=== PATIENT | female | born 1965 | race Caucasian/White ===

== ENCOUNTER → 2020-05-24 13:09 | Outpatient (CLI) | payer OTHER, SELFPAY ==
--- NOTE | ~2020-05-24 | MM_ITS ---
EXAMINATION: MM screening [facility] BI w gia HISTORY: Screening TECHNIQUE: Craniocaudal and mediolateral oblique 3-D tomosynthesis images were obtained and synthetic 2-D images were generated. CAD analysis was submitted and interpreted. COMPARISON: Comparison to multiple prior studies sequentially, with oldest reviewed study dated 02/2013. BREAST PARENCHYMAL COMPOSITION: There are scattered areas of fibroglandular density. FINDINGS: There is no evidence of suspicious mass, calcification, or architectural distortion to sugg est malignancy in either breast. There has been no suspicious interval change. IMPRESSION: 1. No mammographic evidence of malignancy. 2. Recommend routine screening mammography in one year. BI-RADS Category 1: Negative Reviewed, dictated and finalized at location A.
== END ==
PROVIDERS: PCP Family Medicine; Visit Provider Obstetrics & Gynecology
DX: Z12.31 Encounter for screening mammogram for malignant neoplasm of breast (principal)
CPT/HCPCS: 77063; 77067

== ENCOUNTER 2022-11-22 02:17 | Emergency (ER) | payer OTHER, SELFPAY ==
--- NOTE | ~2022-11-22 | XR_ITS ---
EXAMINATION: XR chest 2V DATE: 11/22/2022 02:51 INDICATION: Irregular heartbeat, nausea TECHNIQUE: Frontal and lateral views of the chest are obtained COMPARISON: 12/16/2012 FINDINGS: The lungs are free of acute opacities. No pleural effusion or pneumothorax. The cardiomedia stinal silhouette is normal. There is moderate thoracic spondylosis. IMPRESSION: 1. No acute cardiopulmonary abnormality. Reviewed, dictated and finalized at location F.
--- NOTE | 2022-11-22 02:18 | ECG_ITS ---
Measurements Intervals Eckert Rate: 101 P: 23 VA: 129 QRS: -1 QRSD: 95 T: 22 QT: 359 QTc: 467 Interpretive Statements SINUS TACHYCARDIA MODERATE VOLTAGE CRITERIA FOR LVH, CONSIDER NORMAL VARIANT [MEETS CRITERIA IN ONE OF: R(aVL), S(V1), R(V5), R(V5/V6)+S(V1)] NONSPECIFIC ST & T-WAVE ABNORMALITY ABNORMAL ECG NO PREVIOUS ECG AVAILABLE FOR COMPARISON Electronically Signed On 11-22-2022 13:47:31 CDT by Natan Irby M.D.
[2022-11-22 02:22] VITALS: BP 156/119; PULSE 102; RESP 15; TEMP 36.4; O2SAT 100
[2022-11-22] MEDS: ONDANSETRON INJ 4 MG/2 ML VIAL IV PUSH (02:32)
[2022-11-22 02:35] LABS: Basophils Percent Auto 0.4 % (0.2-1.2); Eosinophils Absolute Auto 0.3 K/mm3 (0-0.3); Eosinophils Percent Auto 2.7 % (0-4.4); Hematocrit 46.8 % (37.0-47.0); Hemoglobin 15.7 g/dL (12.0-15.0); Immature Granulocyte Absolute 0.03 K/mm3 (0.00-0.031); Immature Granulocyte Percent A 0.3 % (0-0.5); Lymphocytes Absolute Auto 3.98 K/mm3 (0.9-3.2); Lymphocytes Percent Auto 39.8 % (18.3-44.2); Mean Corpuscular HGB Conc 33.5 g/dl (32-36); Mean Corpuscular Hemoglobin 29.5 pg (26-34); Mean Platelet Volume 10.8 fl (7.4-10.4); Monocytes Absolute Auto 0.7 K/mm3 (0.1-0.6); Monocytes Percent Auto 6.8 % (2.6-8.5); Platelet Count Result 252 k/mm3 (150-375); Red Blood Count 5.32 M/mm3 (4.2-5.4)
--- NOTE | 2022-11-22 02:35 | ED.GENADULT ---
HPI - General Adult General Chief complaint: Chest Pain Stated complaint: chest pain Time Seen by Provider: 11/22/22 02:20 History of Present Illness HPI narrative: This is a 57-year-old female presenting ED with a chief complaint of chest discomfort. Patient says that starting at 10:00 p.m. she started feel a fluttering in her chest and a general feeling of unease. It is associated with nausea and vomiting. She has not described any actual chest pain or shortness of breath, abdominal pain, fever or chills. She does have chronic back pain which is unchanged. Patient notes that she is under a large amount of stress at home. She has never had anxiety attack in the past. Related Data Allergies Allergy/AdvReac Type Severity Reaction Status Date / Time ciprofloxacin Allergy Mild Unknown Unverified 11/22/22 02:33 latex Allergy Mild Unknown Unverified 11/22/22 02:33 levofloxacin Allergy Mild Unknown Unverified 11/22/22 02:33 ofloxacin Allergy Mild Unknown Unverified 11/22/22 02:33 sulfamethoxazole Allergy Mild Unknown Unverified 11/22/22 02:33 trimethoprim Allergy Mild Unknown Unverified 11/22/22 02:33 Sulfa (Sulfonamide Allergy Unknown Unknown Verified 11/22/22 02:33 Antibiotics) CYCLOBENZAPRINE HCL Allergy Unknown Unknown Uncoded 11/22/22 02:33 [facility] Past Medical History Medical History (Updated 11/22/22 @ 06:28 by Zuhair Thurston MD) Asthma Trigeminal neuralgia Surgical History Surgical History (Updated 11/22/22 @ 02:37 by Zuhair Thurston MD) Previous back surgery Exam Narrative: APPEARANCE: Patient appears uncomfortable Head: atraumatic. EYES: EOMI, NOSE: Atraumatic NECK: Trachea midline RESPIRATORY: No increased rate of breathing, clear to auscultation CARDIOVASCULAR: tachycardic, regular, no peripheral edema ABDOMINAL: soft nontender no guarding or rebound MUSCULOSKELETAl: No obvious deformities NEURO: Alert. Moving 4/4 extremities SKIN:: Warm, dry. Normal color PSYCHIATRIC: Normal affect Course Vital Signs Vital signs: Vital Signs Temperature 97.6 F 11/22/22 02:22 Pulse Rate 102 H 11/22/22 02:22 Respiratory Rate 15 11/22/22 02:22 Blood Pressure 156/119 H 11/22/22 02:22 Pulse Oximetry 100 11/22/22 02:22 Oxygen Delivery Room Air 11/22/22 02:22 Temperature 97.6 F 11/22/22 02:22 Pulse Rate 73 11/22/22 03:58 Respiratory Rate 12 11/22/22 03:58 Blood Pressure 130/75 11/22/22 03:58 Pulse Oximetry 100 11/22/22 03:58 Oxygen Delivery Room Air 11/22/22 02:22 Medical Decision Making [facility] Narrative Medical decision making narrative: -Presentation: 57-year-old female presenting with chest discomfort. She has abnormal vital signs. Chest pain workup including a BMP/D-dimer will be obtained. -DDX includes but is not limited to: Anxiety, ACS, pulmonary embolism, pneumonia viral syndrome -Co-morbidities complicating care: asthma -Social determinants of health: patient used to work as an ER nurse, lives with her -External Chart Review: none -Hx from independent Sources: at bedside -Discussion of Management/Consultants: none -Independent interpretation of studies: CBC was within normal limits. Metabolic panel was unremarkable. D-dimer was 0.49. Troponins were negative x2. BNP is normal. Viral swabs were negative. Chest x-ray showed no acute cardiopulmonary process. Independent EKG interpretation: Rhythm [sinus], Rate [101], Raymond -[normal], DE -[normal], QRS [narrow], QTC [normal], T waves -[negative for concerning inversions], ST Segments - [Negative for concerning elevations] Final interpretations: sinus tachycardia with nonspecific T-wave abnormalities Dx tests considered but not ordered: None -Procedures: -Interventions: Zofran, 2 L of fluid, Compazine, Reglan -Shared decision making / Disposition: UUpon re-evaluation the patient is feeling better. Her nausea and vomiting have resolved. Her vital signs
[2022-11-22 02:45] LABS: Alanine Aminotransferase 28 U/L (6-35); Albumin Level 4.8 g/dL (3.5-5.1); Alkaline Phosphatase 106 U/L (38-126); Anion Gap 11 mmol/L (8-16); Aspartate Amino Transferase 29 U/L (14-36); Bilirubin,Total 0.5 mg/dL (0.2-1.3); Blood Urea Nitrogen 13 mg/dL (7-17); Calcium 9.2 mg/dL (8.4-10.2); Carbon Dioxide 22 mmol/L (22-30); Chloride 107 mmol/L (98-107); Estimated Glomerular Filt Rate > 60; Glucose 131 mg/dL (65-110); Lipase 118 U/L (23-300); Potassium 3.5 mmol/L (3.4-5.0); Sodium 140 mmol/L (137-145)
[2022-11-22 02:46] LABS: Prothrombin Time 12.5 Seconds (11.1-14.7)
[2022-11-22 02:47] LABS: Partial Thromboplastin Time 26.6 SECONDS (22.3-36.8)
[2022-11-22 02:57] LABS: Troponin I < 0.012 ng/mL (0.000-0.034)
[2022-11-22 02:58] LABS: D Dimer 0.49 ug/mL (<0.48)
[2022-11-22 03:00] LABS: NT Pro B Type Natriuretic Pept 30 pg/mL (19.9-100)
[2022-11-22] MEDS: SODIUM CHLORIDE 0.9% IV 2,000 ML 999 ML IV CONT (03:37)
[2022-11-22] MEDS: LORazepam INJ (*CRX) 2 MG/ML VIAL 0.5 MG IV PUSH (03:38)
[2022-11-22] MEDS: PROCHLORPERAZINE EDISYLATE 10 MG/2 ML VIAL IV PUSH (03:43)
[2022-11-22 03:51] LABS: Influenza A QL RT-PCR Negative (Negative); Influenza B QL RT-PCR Negative (Negative); RSV RNA, RT-PCR Negative (Negative); SARS-CoV-2 RNA PCR Negative
[2022-11-22 03:58] VITALS: BP 130/75; PULSE 73; RESP 12; O2SAT 100
[2022-11-22] MEDS: METOCLOPRAMIDE HCL INJ 10 MG/2 ML VIAL IV PUSH (05:16)
[2022-11-22 06:32] LABS: Troponin I < 0.012 ng/mL (0.000-0.034)
== END 2022-11-22 06:50 | disposition home or self-care (01) ==
PROVIDERS: Emergency Provider Emergency Medicine; PCP Family Medicine
DX: R11.2 Nausea with vomiting, unspecified (principal); J45.909 Unspecified asthma, uncomplicated; Z20.822 Contact with and (suspected) exposure to COVID-19; R00.0 Tachycardia, unspecified
CPT/HCPCS: 36415; 71046; 80053; 83690; 83880; 84484; 85025; 85380; 85610; 85730; 87637; 93005; 96361; 96374; 96375; 99284; J0780; J2060; J2405; J2765; J7030

== ENCOUNTER → 2023-03-06 15:38 | Outpatient (CLI) | payer BC, SELFPAY ==
--- NOTE | ~2023-03-06 | MM_ITS ---
EXAMINATION: MM screening [facility] BI w gia HISTORY: Screening TECHNIQUE: Craniocaudal and mediolateral oblique 3-D tomosynthesis images were obtained and synthetic 2-D images were generated. CAD analysis was submitted and interpreted. COMPARISON: Comparison to multiple prior studies sequentially, with oldest reviewed study dated 01/2016. BREAST PARENCHYMAL COMPOSITION: There are scattered areas of fibroglandular density. FINDINGS: There is no evidence of suspicious mass, calcification, or architectural distortion to sugg est malignancy in either breast. There has been no suspicious interval change. IMPRESSION: 1. No mammographic evidence of malignancy. 2. Recommend routine screening mammography in one year. BI-RADS Category 1: Negative Reviewed, dictated and finalized at location A.
== END ==
PROVIDERS: PCP Family Medicine; Visit Provider Family Medicine
DX: Z12.31 Encounter for screening mammogram for malignant neoplasm of breast (principal)
CPT/HCPCS: 77063; 77067

== ENCOUNTER 2024-03-15 09:18 | Outpatient (CLI) | payer BC, SELFPAY ==
--- NOTE | ~2024-03-15 | MM_ITS ---
EXAMINATION: MM screening [facility] BI w gia HISTORY: Screening TECHNIQUE: Craniocaudal and mediolateral oblique 3-D tomosynthesis images were obtained and synthetic 2-D images were generated. CAD analysis was submitted and interpreted. COMPARISON: Comparison to multiple prior studies sequentially, with oldest reviewed study dated 01/2016. BREAST PARENCHYMAL COMPOSITION: Not dense: There are scattered areas of fibroglandular density. FINDINGS: There is no evidence of suspicious mass, calcification, or architectural distortion to sugg est malignancy in either breast. There has been no suspicious interval change. IMPRESSION: 1. No mammographic evidence of malignancy. 2. Recommend routine screening mammography in one year. BI-RADS Category 1: Negative Reviewed, dictated and finalized at location B.
== END 2024-03-15 09:19 | disposition home or self-care (01) ==
LOC: ANHIMG 09:19
PROVIDERS: PCP Family Medicine; Visit Provider Family Medicine
DX: Z12.31 Encounter for screening mammogram for malignant neoplasm of breast (principal)
CPT/HCPCS: 77063; 77067

== ENCOUNTER 2025-06-12 14:01 | Outpatient (CLI) | payer OTHER, SELFPAY ==
--- NOTE | ~2025-06-12 | MM_ITS ---
EXAMINATION: MM screening [facility] BI w gia HISTORY: Screening TECHNIQUE: Craniocaudal and mediolateral oblique 3-D tomosynthesis images were obtained and synthetic 2-D images were generated. CAD analysis was submitted and interpreted. COMPARISON: Comparison to multiple prior studies sequentially, with oldest reviewed study dated 12/24/2015. BREAST PARENCHYMAL COMPOSITION: Not dense: There are scattered areas of fibroglandular density. FINDINGS: There is no evidence of suspicious mass, calcification, or architectural distortion to suggest malignancy in either breast. There has been no suspicious interval change. IMPRESSION: 1. No mammographic evidence of malignancy. 2. Recommend routine screening mammography in one year. BI-RADS Category 1: Negative Reviewed, dictated and finalized at location O.
--- OUTSIDE RECORDS SUMMARY | 2025-06-12 14:05 | XMS_ITS | Continuity of Care Document ---
Author Organization [employer] Address [address] [address] Insurance Providers Payer Plan Claims Address Claims Phone Policy Number Group Number Relation Employer Guarantor Name Guarantor Guarantor Address Guarantor Phone [employer] [id number] [employer] a [id number] Self Kat Gray 1965 [address] [place] [address] Problems Condition ICD9 code ICD10 code SNOMED code Start Date End Date S tatus Encounter for screening for other metabolic disorders Z13.228 Results No Results Allergies, adverse reactions, alerts No known allergies and adverse reactions Medications No administered medications reported Vital Signs No vital signs reported Social History No smoking Hx information available
== END 2025-06-12 14:02 | disposition home or self-care (01) ==
PROVIDERS: PCP Family Medicine; Visit Provider Family Medicine
DX: Z12.31 Encounter for screening mammogram for malignant neoplasm of breast (principal)
CPT/HCPCS: 77063; 77067